=== PATIENT | female | born 1995 | race Two or more races ===

== ENCOUNTER 2016-11-25 03:18 | Emergency (ER) | payer OTHER ==
[~2016-11-25] VITALS: Ht 180.3 cm; Wt 132.0 kg
[2016-11-25 05:23] LABS: INTERNAL CONTROL VALID? YES
[2016-11-25 05:23] LABS: ADD MIUA? YES; BILIRUBIN NEGATIVE; BLOOD NEGATIVE; COLOR YELLOW ((YELLOW)); GLUCOSE (STRIP) NEGATIVE; KETONES NEGATIVE; LEUKOCYTES SMALL; NITRITE NEGATIVE; PROTEIN (STRIP) 30; SPECIFIC GRAVITY 1.031 (1.000-1.030); UROBILINOGEN 0.2 MG/DL (0.2-1.0)
[2016-11-25 05:29] LABS: BACTERIA RARE /HPF; EPITHELIAL CELLS 1+ /HPF; MUCUS TRACE /LPF; RED BLOOD CELLS 0-5 /HPF (0-5); UCUL ADDED? NO; WHITE BLOOD CELLS 15-20 /HPF (0-5)
[2016-11-25] MEDS ORDERED: DIFLUCAN150 MG PO (06:32)
[2016-11-25 07:24] VITALS: BP 130/84
[2016-11-25 09:40] LABS: TREPONEMA ANTIBODY NEGATIVE (NEGATIVE)
[2016-11-25 13:21] LABS: CHLAMYDIA TRACHOMATIS NEGATIVE; NEISSERIA GONORRHOEAE NEGATIVE
== END 2016-11-25 07:25 | disposition home or self-care (01) ==
LOC: EME 03:18
PROVIDERS: Emergency Medicine
DX: T76.21XA Adult sexual abuse, suspected, initial encounter (principal); N39.0 Urinary tract infection, site not specified; Z87.891 Personal history of nicotine dependence
CPT/HCPCS: 81003; 84703; 86780; 87491; 87591; 99281; 99285; G0480; J0696